=== PATIENT | female | born 1960 | race African-American/Black ===

== ENCOUNTER → 2019-08-13 | Emergency (ER) | payer MEDICARE, OTHER ==
[~2019-08-13] VITALS: Ht 172.7 cm; Wt 81.6 kg
[2019-08-13 14:25] VITALS: BP 118/66
--- NOTE | 2019-08-13 14:43 | Emergency Room Report ---
History of Present Illness General Chief Complaint: Multiple Trauma/Fall Source: Patient Present Illness HPI 59-year-old female with history of CVA brought in by BLS from a convalescent home, presents status post fall. Fall was unwitnessed but per RN at convalescent home. They believe that she was leaning forward in her wheelchair and fell face down. There was epistaxis at the scene but not here in the ED. Patient reports mild nose pain and head pain. Denies any neck pain, chest pain , numbness, slurred speech. Patient is nonambulatory at baseline, she is always in a wheelchair. Allergies: Coded Allergies: No Known Allergies (Unverified , 08/13/19) COVID-19 Screening Contact w/high risk pt: No Recent Travel to affected area: No Experienced COVID-19 symptoms?: No COVID-19 Testing performed ATHLETE MARKETING AGENT: No Patient History Past Medical History: see triage record Last Menstrual Period: na Reviewed Nursing Documentation: PMH: Agreed; PSxH: Agreed Nursing Documentation-PMH Past Medical History: No History, Except For Hx Hypertension: Yes Hx Asthma: Yes History Of Psychiatric Problem: Yes - schizophrenia, anxiety, depression, encephalopathy Review of Systems All Other Systems: negative except mentioned in HPI Physical Exam Vital Signs Date Time Temp Pulse Resp B/P (MAP) Pulse Ox O2 Delivery O2 Flow Rate FiO2 08/13/19 14:20 98.2 80 16 118/66 (83) 92 Room Air Sp02 EP Interpretation: reviewed, normal General Appearance: normal inspection, well appearing, no apparent distress, alert, GCS 15, non-toxic Eyes: bilateral eye normal inspection, bilateral eye PERRL, bilateral eye EOMI ENT: hearing grossly normal, EOM grossly intact, normal voice, TMs + canals normal, other - Tenderness to nasal bridge. No epistaxis. Neck: normal inspection, full range of motion, supple, thyroid normal, no meningismus, no bony tend Respiratory: chest non-tender, lungs clear, normal breath sounds, no respiratory distress Cardiovascular #1: normal peripheral pulses, regular rate, rhythm Gastrointestinal: normal inspection, normal bowel sounds, non tender, soft, no mass, no organomegaly, no guarding, no rebound Musculoskeletal: normal inspection, normal range of motion, no calf tenderness Neurologic: alert, motor strength/tone normal, aeronautical inspector III-XII nml as tested, oriented x3, sensory intact, speech normal Psychiatric: judgement/insight normal, mood/affect normal Skin: no rash, normal color, warm/dry Lymphatic: no adenopathy Medical Decision Making PA Attestation Dr. Villa is my supervising physician whom patient management and care has been discussed with. Diagnostic Impression: Primary Impression: Nasal contusion Qualified Codes: S00.33XA - Contusion of nose, initial encounter Additional Impression: Fall Qualified Codes: W19.XXXA - Unspecified fall, initial encounter ER Course Pt. presents to the ED c/o nose and head pain status post fall. Ddx considered but are not limited to nasal fracture, skull fracture, intracranial pathology Vital signs: are WNL, pt. is afebrile H&PE are most consistent with fall, nasal contusion No epistaxis during ED course ORDERS: CBC, BMP, troponin, EKG, CT head, CT maxillofacial No acute fracture or pathology on CT head and maxillofacial. Labs WNL, troponin negative. EKG normal ED INTERVENTIONS: None required at this time. DISCHARGE: At this time pt. is stable for d/c to home. Will provide printed patient care instructions, and any necessary prescriptions. Advised to follow up outpatient in 1-2 days. Care plan and follow up instructions have been discussed with the patient prior to discharge. Laboratory Tests Test 08/13/19 15:00 White Blood Count 5.0 K/UL (4.8-10.8) Red Blood Count 3.60 M/UL (4.20-5.40) L Hemoglobin 10.2 G/DL (12.0-16.0) L Hematocrit 32.4 % (37.0-47.0) L Mean Corpuscular Volume 90 FL (80-99) Mean Corpuscular Hemoglobin 28.3 PG (27.0-31.0) Mean Corpuscular Hemoglobin Concent 31.5 G/DL (32.0-36.0) L Red Cell Distribution Width 13.4 % (11.6-14.8) Platelet Count 202 K/UL (150-450) Mean Platelet Volume 7.0 FL (6.5-10.1) Neutrophils (%) (Auto) 63.9 % (45.0-75.0) Lymphocytes (%) (Auto) 21.3 % (20.0-45.0) Monocytes (%) (Auto) 12.6 % (1.0-10.0) H Eosinophils (%) (Auto) 1.4 % (0.0-3.0) Basophils (%) (Auto) 0.8 % (0.0-2.0) Sodium Level 140 MMOL/L (136-145) Potassium Level 4.3 MMOL/L (3.5-5.1) Chloride Level 103 MMOL/L (98-107) Carbon Dioxide Level 27 MMOL/L (21-32) Anion Gap 10 mmol/L (5-15) Blood Urea Nitrogen 24 mg/dL (7-18) H Creatinine 2.2 MG/DL (0.55-1.30) H Estimated Glomerular Filtration Rate 22.9 mL/min (>60) Glucose Level 94 MG/DL (74-106) Calcium Level 9.5 MG/DL (8.5-10.1) Troponin I 0.002 ng/mL (0.000-0.056) EKG Diagnostic Results EKG Time: 14:49 Rate: normal Rhythm: NSR ST Segments: no acute changes ASA given to the pt in ED: No PA Scribe Text This EKG was scribed by Brittney Santiago PA-C. CT/MRI/US Diagnostic Results CT/MRI/US Diagnostic Results : Impression CT head interpreted by radiologist: Impression: Age-related changes. No acute intracranial abnormality. CT maxillofacial interpreted by radiologist: Impression: Old nasal fracture. No acute maxillofacial fracture seen. Mild sinus disease. Last Vital Signs Date Time Temp Pulse Resp B/P (MAP) Pulse Ox O2 Delivery O2 Flow Rate FiO2 08/13/19 14:20 98.2 80 16 118/66 (83) 92 Room Air Brittney Santiago N. P.ASteve August 13, 2019 14:43
[2019-08-13 15:37] LABS: BASOPHILS % (AUTO) 0.8 % (0.0-2.0); EOSINOPHILS % (AUTO) 1.4 % (0.0-3.0); HEMATOCRIT 32.4 % (37.0-47.0); HEMOGLOBIN 10.2 G/DL (12.0-16.0); LYMPHOCYTES % (AUTO) 21.3 % (20.0-45.0); MEAN CORPUSCULAR VOLUME 90 FL (80-99); MONOCYTES % (AUTO) 12.6 % (1.0-10.0); NEUTROPHILS % (AUTO) 63.9 % (45.0-75.0); PLATELET COUNT 202 K/UL (150-450); RED CELL DISTRIBUTION WIDTH 13.4 % (11.6-14.8)
[2019-08-13 15:41] LABS: ANION GAP 10 mmol/L (5-15); BLOOD UREA NITROGEN 24 mg/dL (7-18); CALCIUM 9.5 MG/DL (8.5-10.1); CARBON DIOXIDE 27 MMOL/L (21-32); CHLORIDE 103 MMOL/L (98-107); CREATININE 2.2 MG/DL (0.55-1.30); POTASSIUM 4.3 MMOL/L (3.5-5.1); SODIUM 140 MMOL/L (136-145)
--- NOTE | 2019-08-13 15:51 | Diagnostic Imaging Report ---
EXAM: CT CT Head no Contrast INDICATION: Trauma with head pain and epistaxis. TECHNIQUE: Axial images of the brain were obtained with subsequent sagittal and coronal reformats. All CT scans at this facility are performed using dose modulation techniques as appropriate to a performed exam including the following: automated exposure control with adjustment of the mA and/or kV according to patient size. COMPARISON STUDY: None. RADIATION DOSE: CTDIvol: 68.7 mGy DLP: 1379.3 mGy-cm Dose information generated by the CT scanner is available in PACS. FINDINGS: There is age related senescent changes with ventricular and sulcal prominence. White matter micro-ischemic changes noted. There is no acute large territory cortical infarct, hemorrhage, mass effect or shift. Ventricles and cisterns as well as brainstem and posterior fossa appear unremarkable. The sellar region is normal. Sinuses, mastoid air cells and bony calvarium appear intact. IMPRESSION: Age-related changes. No acute intracranial abnormality.
--- NOTE | 2019-08-13 16:00 | Diagnostic Imaging Report ---
EXAM: CT CT Maxillofacial no Contrast CLINICAL HISTORY: Trauma with facial pain and epistaxis. TECHNIQUE: Axial images obtained through the face with subsequent sagittal and coronal reformat images. All CT scans at this facility are performed using dose modulation techniques as appropriate to a performed exam including the following: automated exposure control with adjustment of the mA and/or kV according to patient size. RADIATION DOSE: CTDIvol: 68.7 mGy DLP: 1379.3 mGy-cm Dose information generated by the CT scanner is available in PACS. COMPARISON: None FINDINGS: There is an old left nasal fracture with corticated margins. The orbits appear unremarkable. The zygomatic arches are intact. The pterygoid plates show normal configuration. Mucosal thickening noted in the left maxillary sinus and ethmoid air cells. The TMJs are congruent. Soft tissue of the face appears unremarkable. IMPRESSION: OLD NASAL FRACTURE. NO ACUTE MAXILLOFACIAL FRACTURE SEEN. MILD SINUS DISEASE.
[2019-08-13 16:10] VITALS: BP 121/68
== END | disposition home or self-care (01) ==
LOC: EDBD 14:19 → EMR 14:50
DX: S00.33XA Contusion of nose, initial encounter (principal); I10 Essential (primary) hypertension; J45.909 Unspecified asthma, uncomplicated; W05.0XXA Fall from non-moving wheelchair, initial encounter; Y93.9 Activity, unspecified; Y92.129 Unspecified place in nursing home as the place of occurrence of the external cause
CPT/HCPCS: 36415; 70450; 70486; 80048; 84484; 85025; 93005; 99284

== ENCOUNTER 2019-09-22 17:57 | Emergency (ER) | payer MEDICARE, OTHER ==
[~2019-09-22] VITALS: Ht 165.1 cm; Wt 61.2 kg
[2019-09-22] MEDS ORDERED: Acetaminophen 500mg (ES) tab PO ONE (18:15)
--- NOTE | 2019-09-22 18:17 | NUR ---
ED Nurse Note: Pt brought in by tanya Swartz from [facility] due to unwitnessed fall this afternoon. Per EMS, pt was found on the floor with a forehead bump and blood dripping from her nose. AAO 1(baseline), unable to follow commands with non labored breathing.
--- NOTE | 2019-09-22 18:22 | Emergency Room Report ---
History of Present Illness General Chief Complaint: Multiple Trauma/Fall Source: Patient, EMS Present Illness HPI Patient had an unwitnessed fall at the nursing facility that she resides. She was found with a hematoma in the forehead. She is complaining about head pain. She reports 0/10 pain to the triage nurse and to the treating nurse. She denies neck pain. She denies extremity pain. Patient is a poor historian and cannot report what happened with the fall. She has a history of schizophrenia. Apparently she has an unsteady gait as reported by the facility where she lives. According to the assisted living facility she has a history of a cerebral infarction with left-sided weakness. No fevers, chills, sore throat, chest pain, palpitations, nausea, vomiting, diarrhea, dysuria, abdominal pain, shortness of breath, rashes, visual changes, dizziness. Allergies: Coded Allergies: No Known Allergies (Unverified , 08/13/19) COVID-19 Screening Contact w/high risk pt: No Recent Travel to affected area: No Experienced COVID-19 symptoms?: No COVID-19 Testing performed RESOURCE MANAGEMENT SPECIALIST: No Patient History Past Medical History: see triage record, old chart reviewed - From assisted living Social History: Denies: smoking Social History Narrative Assisted living Reviewed Nursing Documentation: PMH: Agreed; PSxH: Agreed Nursing Documentation-PMH Hx Hypertension: Yes Hx Asthma: Yes Review of Systems All Other Systems: negative except mentioned in HPI - Questionable historian Physical Exam Vital Signs Date Time Temp Pulse Resp B/P (MAP) Pulse Ox O2 Delivery O2 Flow Rate FiO2 09/22/19 18:07 98.2 68 18 138/78 (98) 97 Room Air Sp02 EP Interpretation: reviewed, normal General Appearance: no apparent distress, alert, non-toxic, Chronically Ill Head: normocephalic, other - Frontal hematoma Eyes: bilateral eye normal inspection, bilateral eye PERRL, bilateral eye EOMI ENT: moist mucus membranes Neck: full range of motion, supple, no bony tend Respiratory: chest non-tender, lungs clear, normal breath sounds Cardiovascular #1: regular rate, rhythm, no edema Cardiovascular #2: 2+ radial (L) Gastrointestinal: normal inspection Genitourinary: no CVA tenderness Musculoskeletal: normal range of motion, back normal, no calf tenderness Neurologic: alert, motor strength/tone normal, oriented - X2, sensory intact, other - Halting speech Psychiatric: depressed affect Skin: normal color, hematoma - Forehead Medical Decision Making Diagnostic Impression: Primary Impression: Multiple injuries due to trauma Additional Impressions: Head injury Qualified Codes: S09.90XA - Unspecified injury of head, initial encounter Hematoma ER Course The patient sustained an unwitnessed fall and has a frontal hematoma. Differential includes syncope, fall due to unsteady gait, hematoma, intracerebral bleed, arrhythmia amongst others. Patient presents after as the patient has had an unwitnessed fall evaluation needs to be undertaken for possible syncope. Evaluation with EKG, CT the head and labs. The patient is given Tylenol. Patient refusing EKG. several discussions by staff and myself feel to convince the patient of the need for an EKG. Chest x-ray normal. CT the head with frontal hematoma. Labs unremarkable. Patient improved after Tylenol. Staff report unsteady gait and this is corroborated as patient's baseline. No medical emergency at this time. The facility is comfortable having the patient return. Patient stable for outpatient observation and treatment. Laboratory Tests Test 09/22/19 19:00 White Blood Count 4.6 K/UL (4.8-10.8) L Red Blood Count 3.61 M/UL (4.20-5.40) L Hemoglobin 10.3 G/DL (12.0-16.0) L Hematocrit 32.5 % (37.0-47.0) L Mean Corpuscular Volume 90 FL (80-99) Mean Corpuscular Hemoglobin 28.4 PG (27.0-31.0) Mean Corpuscular Hemoglobin Concent 31.5 G/DL (32.0-36.0) L Red Cell Distribution Width 13.9 % (11.6-14.8) Platelet Count 238 K/UL (150-450) Mean Platelet Volume 6.1 FL (6.5-10.1) L Neutrophils (%) (Auto) 47.1 % (45.0-75.0) Lymphocytes (%) (Auto) 37.2 % (20.0-45.0) Monocytes (%) (Auto) 11.6 % (1.0-10.0) H Eosinophils (%) (Auto) 2.3 % (0.0-3.0) Basophils (%) (Auto) 1.9 % (0.0-2.0) Prothrombin Time 10.9 SEC (9.30-11.50) Prothrombin Time INR 1.0 (0.9-1.1) Activated Partial Thromboplast Time 23 SEC (23-33) Sodium Level 140 MMOL/L (136-145) Potassium Level 4.1 MMOL/L (3.5-5.1) Chloride Level 103 MMOL/L (98-107) Carbon Dioxide Level 29 MMOL/L (21-32) Anion Gap 8 mmol/L (5-15) Blood Urea Nitrogen 12 mg/dL (7-18) Creatinine 1.9 MG/DL (0.55-1.30) H Estimated Glomerular Filtration Rate 33.0 mL/min (>60) Glucose Level 104 MG/DL (74-106) Calcium Level 8.8 MG/DL (8.5-10.1) Total Bilirubin 0.1 MG/DL (0.2-1.0) L Aspartate Amino Transferase (AST) 15 U/L (15-37) Alanine Aminotransferase (ALT) 11 U/L (12-78) L Alkaline Phosphatase 42 U/L (46-116) L Troponin I 0.000 ng/mL (0.000-0.056) Pro-B-Type Natriuretic Peptide 84 pg/mL (0-125) Total Protein 7.6 G/DL (6.4-8.2) Albumin 3.7 G/DL (3.4-5.0) Globulin 3.9 g/dL Albumin/Globulin Ratio 0.9 (1.0-2.7) L Chest X-Ray Diagnostic Results Chest X-Ray Diagnostic Results : Chest X-Ray Ordered: Yes # of Views/Limited/Complete: 1 View Indication: Other EP Interpretation: Yes Interpretation: no consolidation, no effusion, no pneumothorax Impression: No acute disease Electronically Signed by: Electronically signed by Gregg Llanes MD CT/MRI/US Diagnostic Results CT/MRI/US Diagnostic Results : Imaging Test Ordered: Head Impression 1. Frontal scalp hematoma. 2. No acute intracranial abnormality. 3. Otherwise unremarkable study. Last Vital Signs Date Time Temp Pulse Resp B/P (MAP) Pulse Ox O2 Delivery O2 Flow Rate FiO2 30/20 21:15 98.3 70 18 120/55 95 Room Air Status: improved Disposition: ASSISTED LIVING Condition: Stable Scripts Acetaminophen (Tylenol) 325 Mg Tablet 650 MG ORAL Q6H PRN for Prn Pain/Headache/Temp > 101, #20 TAB 0 Refills Prov: Gregg Llanes MD 09/22/19 Gregg Llanes MD Sep 22, 2019 18:21
[2019-09-22] MEDS ORDERED: DIVALPROEX SOD500 MG PO (18:24)
[2019-09-22] MEDS ORDERED: ASPIR 8181 MG ORAL (18:24)
[2019-09-22] MEDS ORDERED: ACETAMINOPHEN325 M1 ORAL (18:24)
[2019-09-22] MEDS ORDERED: BENZTROPINE MESY1 MG ORAL (18:24)
[2019-09-22] MEDS ORDERED: HYDRALAZINE HCL25 M2 PO (18:24)
[2019-09-22] MEDS ORDERED: LEXAPRO10 MG ORAL (18:24)
[2019-09-22] MEDS ORDERED: GUAIFENESIN-DM 15 ML PO (18:24)
[2019-09-22] MEDS ORDERED: AMLODIPINE BESY10 MG ORAL (18:24)
[2019-09-22] MEDS ORDERED: ATORVASTATIN CA40 MG ORAL (18:24)
--- NOTE | 2019-09-22 18:48 | Diagnostic Imaging Report ---
EXAM: CT Head Without Intravenous Contrast CLINICAL HISTORY: TRAUMA TECHNIQUE: Axial computed tomography images of the head/brain without intravenous contrast. CTDI is 53 mGy and DLP is 965 mGy-cm. One or more of the following dose reduction techniques were used: automated exposure control, adjustment of the mA and/or kV according to patient size, use of iterative reconstruction technique. COMPARISON: 08/13/2019 FINDINGS: Brain: Unremarkable. No hemorrhage. No significant white matter disease. No edema. Ventricles: Unremarkable. No ventriculomegaly. Bones/joints: Unremarkable. No acute fracture. Soft tissues: Frontal scalp hematoma. Sinuses: Unremarkable as visualized. No acute sinusitis. Mastoid air cells: Unremarkable as visualized. No mastoid effusion. IMPRESSION: 1. Frontal scalp hematoma. 2. No acute intracranial abnormality. 3. Otherwise unremarkable study.
--- NOTE | 2019-09-22 19:10 | NUR ---
ED Nurse Note: Collected blood then sent.
[2019-09-22] MEDS ORDERED: LAMOTRIGINE200 M1 PO (19:11)
[2019-09-22] MEDS ORDERED: KEPPRA500 M4 ORAL (19:11)
[2019-09-22] MEDS ORDERED: QUETIAPINE FUMA25 MG ORAL (19:11)
[2019-09-22] MEDS ORDERED: VENTOLIN HFA18 GM INH (19:11)
[2019-09-22] MEDS ORDERED: TRAMADOL HCL50 MG ORAL (19:11)
[2019-09-22] MEDS ORDERED: IPRATROPIU0.2 MG/1 M HHN (19:11)
[2019-09-22] MEDS ORDERED: LOSARTAN POTAS100 MG ORAL (19:11)
[2019-09-22] MEDS ORDERED: LACTULOSE20 GM/301 ORAL (19:11)
[2019-09-22] MEDS ORDERED: MOM30 ML ORAL (19:11)
[2019-09-22] MEDS ORDERED: XIFAXAN550 MG ORAL (19:11)
--- NOTE | 2019-09-22 19:17 | NUR ---
HAND-OFF: Report given to Galina SHARMA.
--- NOTE | 2019-09-22 19:20 | NUR ---
ED Nurse Note: Report received from ZACHARY Albarado. Pt is resting in bed, NAD.
[2019-09-22 19:26] LABS: BASOPHILS % (AUTO) 1.9 % (0.0-2.0); EOSINOPHILS % (AUTO) 2.3 % (0.0-3.0); HEMATOCRIT 32.5 % (37.0-47.0); HEMOGLOBIN 10.3 G/DL (12.0-16.0); LYMPHOCYTES % (AUTO) 37.2 % (20.0-45.0); MEAN CORPUSCULAR VOLUME 90 FL (80-99); MONOCYTES % (AUTO) 11.6 % (1.0-10.0); NEUTROPHILS % (AUTO) 47.1 % (45.0-75.0); PLATELET COUNT 238 K/UL (150-450); RED BLOOD COUNT 3.61 M/UL (4.20-5.40); RED CELL DISTRIBUTION WIDTH 13.9 % (11.6-14.8); WHITE BLOOD COUNT 4.6 K/UL (4.8-10.8)
[2019-09-22 19:34] LABS: ANION GAP 8 mmol/L (5-15); BLOOD UREA NITROGEN 12 mg/dL (7-18); CALCIUM 8.8 MG/DL (8.5-10.1); CARBON DIOXIDE 29 MMOL/L (21-32); CHLORIDE 103 MMOL/L (98-107); CREATININE 1.9 MG/DL (0.55-1.30); POTASSIUM 4.1 MMOL/L (3.5-5.1); SODIUM 140 MMOL/L (136-145)
[2019-09-22 19:44] LABS: ALANINE AMINOTRANSFERASE 11 U/L (12-78); ALBUMIN 3.7 G/DL (3.4-5.0); ALBUMIN/GLOBULIN RATIO 0.9 (1.0-2.7); ALKALINE PHOSPHATASE 42 U/L (46-116); ASPARTATE AMINO TRANSFERASE 15 U/L (15-37); BILIRUBIN,TOTAL 0.1 MG/DL (0.2-1.0)
--- NOTE | 2019-09-22 19:45 | NUR ---
ED Nurse Note: Pt uncooperative with EKG, unable to obtain without artifact. ERMD aware and is OK without EKG.
--- NOTE | 2019-09-22 20:00 | NUR ---
ED Nurse Note: Pt is resting in bed, NAD. Pt provided with oral hydration and nourishment, tolerated well.
[2019-09-22] MEDS ORDERED: TYLENOL325 MG ORAL (20:21)
--- NOTE | 2019-09-22 20:40 | NUR ---
ED Nurse Note: Report given to meteorologist in charge at facility.
[2019-09-22 20:50] VITALS: BP 129/71
[2019-09-22 21:15] VITALS: BP 120/55
--- NOTE | 2019-09-22 21:15 | NUR ---
ED Nurse Note: Pt is stable for transfer back to facility at this time per ERMD. Pt is being taken to facility by [facility] BLS unit [id number] via gurney. IV removed without complications. Pt belongings sent with pt. Pt is awake and alert, no respiratory distress and vital signs are stable. Report given to EMS crew.
--- NOTE | 2019-09-23 10:06 | Diagnostic Imaging Report ---
In Indication: Reason For Exam: ALOC Technique: One view of the chest Comparison: none Findings: No acute infiltrates, effusions, or congestion. Tortuous calcified aorta. Normal heart size. Upper mediastinum unremarkable. Metallic foreign body projects in the right chest wall Impression: No acute process.
== END 2019-09-22 21:15 ==
LOC: EDBD 17:57 → EDUNIT# 17:57 → EMR 18:23
DX: S09.90XA Unspecified injury of head, initial encounter (principal); S00.83XA Contusion of other part of head, initial encounter; W19.XXXA Unspecified fall, initial encounter; Y92.129 Unspecified place in nursing home as the place of occurrence of the external cause; I10 Essential (primary) hypertension; F20.9 Schizophrenia, unspecified; G81.90 Hemiplegia, unspecified affecting unspecified side
CPT/HCPCS: 36415; 70450; 71045; 80053; 83880; 84484; 85025; 85610; 85730; 99284